=== PATIENT | male | born 1990 | race Caucasian/White ===

== ENCOUNTER 2018-09-18 19:19 | Emergency (ER) | payer OTHER ==
[2018-09-18] MEDS ORDERED: DEXAMETHASONE 10 MG/ML VIAL PO STA (20:42)
--- NOTE | 2018-09-18 20:48 | ED Physician Documentation ---
PD HPI PED ILLNESS - Stated complaint Stated Complaint: FLU SYMPTS - Chief complaint Chief Complaint: Resp - History obtained from History obtained from: Patient - History of Present Illness Timing - onset: Other (He is been sick for a week with cough, runny nose, sore throat. Now the sore throat is really been bothering him for the last 3 days with chills and body aches.) Review of Systems Constitutional: reports: Chills, Myalgias, Fatigue Nose: reports: Rhinorrhea / runny nose, Congestion Throat: reports: Sore throat Respiratory: reports: Cough GI: denies: Vomiting, Diarrhea PD PAST MEDICAL HISTORY - Past Medical History Past Medical History: No - Past Surgical History Past Surgical History: Yes - Present Medications Home Medications: Ambulatory Orders Medication Instructions Recorded Confirmed Ibuprofen [Motrin] 800 mg PO Q8H PRN #30 tablet 09/18/18 - Allergies Allergies/Adverse Reactions: Allergies Allergy/AdvReac Type Severity Reaction Status Date / Time No Known Drug Allergies Allergy Verified 09/18/18 19:35 - Social History Does the pt smoke?: Yes Smoking Status: Current every day smoker Does the pt drink ETOH?: No Does the pt have substance abuse?: No PD ED PE NORMAL - Vitals Vital signs reviewed: Yes - General General: Alert and oriented X 3, No acute distress - HEENT HEENT: EOMI, Ears normal, Pharynx benign - Neck Neck: Supple, no meningeal sign, No bony TTP - Cardiac Cardiac: RRR, No murmur - Respiratory Respiratory: No respiratory distress, Clear bilaterally - Abdomen Abdomen: Non tender - Derm Derm: No rash - Neuro Neuro: Alert and oriented X 3, Normal speech Results - Vitals Vitals: Vital Signs - 24 hr 09/18/18 19:35 Temperature 36.6 C Heart Rate 87 Respiratory 16 Rate Blood Pressure 132/75 H O2 Saturation 94 Oxygen O2 Source Room air - Labs Labs: Laboratory Tests 09/18/18 20:40 Group A Strep Rapid Negative PD MEDICAL DECISION MAKING - ED course ED course: 27-year-old gentleman with viral URI, unlikely to be strep but we will check. He is administered dexamethasone. He may have influenza but has been sick for the better part of a week so no utility in testing or treating. Departure - Departure Disposition: 01 Home, Self Care Clinical Impression: Upper respiratory tract infection Qualifiers: URI type: unspecified viral URI Qualified Code(s): J06.9 - Acute upper respiratory infection, unspecified Condition: Good Instructions: ED Viral Syndrome Prescriptions: Ibuprofen [Motrin] 800 mg PO Q8H PRN #30 tablet PRN Reason: PAIN &/OR FEVER Comments: Your blood pressure was elevated today on check into the emergency department. This does not mean that you have hypertension, it is a common phenomenon to come to the emergency department and have elevated blood pressure. I recommend that you see your primary care physician within the week to have it rechecked when you are feeling better. Forms: Activity restrictions
[2018-09-18 21:13] VITALS: BP 115/49
== END 2018-09-18 21:28 | disposition home or self-care (01) ==
LOC: ED 19:19
DX: J06.9 Acute upper respiratory infection, unspecified (principal); R03.0 Elevated blood-pressure reading, without diagnosis of hypertension; F17.200 Nicotine dependence, unspecified, uncomplicated
CPT/HCPCS: 87070; 87430; 99283

== ENCOUNTER 2019-02-15 19:53 | Emergency (ER) | payer OTHER ==
--- NOTE | 2019-02-15 20:40 | ED Physician Documentation ---
History of Present Illness - Stated complaint Stated Complaint: FLU SYMPTOMS - Chief complaint Chief Complaint: Heent - Additonal information Additional information: This is a 28-year-old male who denies past medical history who presents with 3 days of flulike symptoms. Patient states that his kids have been sick with a viral upper respiratory illness recently, he developed the same symptoms on Wednesday night. He has some sore throat, cough productive of some clear to yellow-green sputum, general malaise, and he started developing some nausea today. These are identical symptoms to the ones his children have. He denies specific chest pain or shortness of breath. No dysuria, no vomiting. He has had subjective fever intermittently. He has been taking DayQuil and NyQuil for his symptoms with some relief. Review of Systems Constitutional: reports: Fever Cardiac: denies: Chest pain / pressure Respiratory: reports: Cough GI: reports: Nausea Skin: denies: Rash PD PAST MEDICAL HISTORY - Past Medical History Cardiovascular: None Respiratory: None Neuro: None Endocrine/Autoimmune: None GI: None : None HEENT: None Psych: None Musculoskeletal: None Derm: None - Past Surgical History Past Surgical History: Yes - Present Medications Home Medications: Ambulatory Orders Medication Instructions Recorded Confirmed Ibuprofen [Motrin] 800 mg PO Q8H PRN #30 tablet 09/18/18 Benzonatate [Tessalon Perle] 100 - 200 mg PO TID PRN #30 capsule 02/15/19 Ondansetron Odt [Zofran] 4 mg TL Q6H PRN #10 tablet 02/15/19 RX: Acetaminophen 650 mg PO Q6HR #30 tablet 02/15/19 - Allergies Allergies/Adverse Reactions: Allergies Allergy/AdvReac Type Severity Reaction Status Date / Time No Known Drug Allergies Allergy Verified 09/18/18 19:35 - Social History Does the pt smoke?: Yes Smoking Status: Current every day smoker Does the pt drink ETOH?: No Does the pt have substance abuse?: No - Immunizations Immunizations are current?: Yes - POLST Patient has POLST: No PD ED PE NORMAL - Vitals Vital signs reviewed: Yes - General General: Alert and oriented X 3 - HEENT HEENT: Moist mucous membranes, Other (Posterior pharynx erythematous, there is no exudate. Mild nasal drainage which is clear.) - Neck Neck: Supple, no meningeal sign - Cardiac Cardiac: RRR, No murmur - Respiratory Respiratory: Clear bilaterally - Abdomen Abdomen: Normal bowel sounds, Soft, Non tender, Non distended - Derm Derm: Warm and dry - Extremities Extremities: No deformity - Neuro Neuro: Alert and oriented X 3 - Psych Psych: Normal mood, Normal affect Results - Vitals Vitals: Vital Signs - 24 hr 02/15/19 02/15/19 19:55 21:21 Temperature 36.8 C 37.7 C H Heart Rate 92 85 Respiratory 14 22 Rate Blood Pressure 136/68 H 125/66 O2 Saturation 96 96 Oxygen O2 Source Room air PD MEDICAL DECISION MAKING - ED course Complexity details: considered differential (Viral URI, viral pharyngitis, strep throat, gastroenteritis, pneumonia, bronchitis, sinusitis) ED course: On initial examination patient's vital signs are unremarkable. He is nontoxic- appearing. His lungs are clear to auscultation, his oxygen saturation is normal, and his duration of his symptoms make pneumonia unlikely. He has no facial pain or tenderness to suggest sinusitis. The presence of cough as well as his age make a strep throat exceedingly unlikely. He has had 3 days of symptoms which are identical to those of his children who are now getting over a viral syndrome, and I feel this is most likely diagnosis. His abdomen is benign. We will treat him symptomatically with Tessalon Perles, Zofran as needed for nausea, and Tylenol and Motrin. I also provided a note excusing him from work tonight. I discussed supportive care. I recommended follow-up with his primary care provider. I also reviewed return precautions including shortness of breath, symptoms that are worsening, or any other concerning symptoms. Patient was discharged home. Departure - Departure Disposition: 01 Home, Self Care Clinical Impression: Upper respiratory tract infection Condition: Good Instructions: ED Upper Resp Infec No Abx Tx Follow-Up: Your,PCP [Other] Prescriptions: RX: Acetaminophen 650 mg PO Q6HR #30 tablet Benzonatate [Tessalon Perle] 100 - 200 mg PO TID PRN #30 capsule PRN Reason: Cough Ondansetron Odt [Zofran] 4 mg TL Q6H PRN #10 tablet PRN Reason: Nausea / Vomiting Comments: You appear to have a upper respiratory infection, please get plenty of sleep, drink fluids, and use good hand hygiene to avoid passing this to others. Return to the emergency department if you are having worsening symptoms. Forms: Activity restrictions Discharge Date/Time: 02/15/19 21:28
[2019-02-15 21:21] VITALS: BP 125/66
== END 2019-02-15 21:28 | disposition home or self-care (01) ==
LOC: ED 19:53
DX: J06.9 Acute upper respiratory infection, unspecified (principal); R11.0 Nausea; F17.200 Nicotine dependence, unspecified, uncomplicated
CPT/HCPCS: 99283; 99284

== ENCOUNTER 2020-03-22 12:02 | Emergency (ER) | payer OTHER ==
--- NOTE | 2020-03-22 13:18 | ED Physician Documentation ---
History of Present Illness - Stated complaint Stated Complaint: THROAT PX - Chief complaint Chief Complaint: Heent - History obtained from History obtained from: Patient - Additonal information Additional information: Patient comes emergency department complaining of throat pain for the last couple of days. He states it hurts to swallow. He has had a feeling of fever and chills, And states that his temperatures at home have all been right at 100. He denies any rhinorrhea or cough. No shortness of breath. No nausea or vomiting. No abdominal pain. His daughter was sick with a "24-hour bug" last week. No other complaints at this time. Review of Systems Ten Systems: 10 systems reviewed and negative Constitutional: reports: Fever, Chills, Fatigue Eyes: reports: Reviewed and negative Ears: reports: Reviewed and negative Nose: reports: Reviewed and negative Throat: reports: Sore throat Cardiac: reports: Reviewed and negative Respiratory: reports: Reviewed and negative GI: reports: Reviewed and negative : reports: Reviewed and negative Skin: reports: Reviewed and negative Musculoskeletal: reports: Reviewed and negative Neurologic: reports: Reviewed and negative Psychiatric: reports: Reviewed and negative Endocrine: reports: Reviewed and negative Immunocompromised: reports: Reviewed and negative PD PAST MEDICAL HISTORY - Past Medical History Cardiovascular: None Respiratory: None Neuro: None Endocrine/Autoimmune: None GI: None : None HEENT: None Psych: None Musculoskeletal: None Derm: None - Past Surgical History Past Surgical History: Yes - Present Medications Home Medications: Ambulatory Orders Medication Instructions Recorded Confirmed Ibuprofen [Motrin] 800 mg PO Q8H PRN #30 tablet 09/18/18 Acetaminophen 650 mg PO Q6HR #30 tablet 02/15/19 Benzonatate [Tessalon Perle] 100 - 200 mg PO TID PRN #30 capsule 02/15/19 Ondansetron Odt [Zofran] 4 mg TL Q6H PRN #10 tablet 02/15/19 Amoxicillin 500 mg PO TID 7 Days #21 capsule 03/22/20 - Allergies Allergies/Adverse Reactions: Allergies Allergy/AdvReac Type Severity Reaction Status Date / Time No Known Drug Allergies Allergy Verified 09/18/18 19:35 - Social History Does the pt smoke?: Yes Smoking Status: Current every day smoker Does the pt drink ETOH?: No Does the pt have substance abuse?: No - Immunizations Immunizations are current?: Yes - POLST Patient has POLST: No PD ED PE NORMAL - Vitals Vital signs reviewed: Yes - General General: Alert and oriented X 3, No acute distress - HEENT HEENT: Atraumatic, PERRL, EOMI, Moist mucous membranes, Other (Patient has 3+ tonsils with exudates bilaterally.) - Neck Neck: Supple, no meningeal sign, No adenopathy - Respiratory Respiratory: No respiratory distress - Abdomen Abdomen: Soft, Non tender, Non distended, No organomegaly - Derm Derm: Normal color, Warm and dry, No rash - Extremities Extremities: No deformity - Neuro Neuro: Alert and oriented X 3 - Psych Psych: Normal mood, Normal affect Results - Vitals Vitals: Oxygen O2 Source Room air - Labs Labs: Microbiology 03/22/20 12:35 Group A Strep Throat Culture - Final Throat Beta Hemolytic Strep Group C Laboratory Tests 03/22/20 03/22/20 12:35 13:53 Infectious [place] Assay NEGATIVE Group A Strep Rapid Negative PD MEDICAL DECISION MAKING - ED course Complexity details: reviewed results, re-evaluated patient, considered differential, d/w patient ED course: Patient was treated symptomatically with GI cocktail and prednisone. His rapid strep test was negative. The patient clearly had exudative pharyngitis, and so I did also send a mono screen which is pending at this time. Malcolm he should be started on antibiotics, given his symptoms and findings. We have discussed that if the mono test is positive, he will be called at home. Otherwise, he should continue to take the amoxicillin as directed. Departure - Departure Disposition: 01 Home, Self Care Clinical Impression: Exudative pharyngitis Condition: Stable Instructions: ED Strep Pharyngitis Poss Prescriptions: Amoxicillin 500 mg PO TID 7 Days #21 capsule Comments: Your rapid strep test came back negative. However, because your throat exam is so convincing for strep, you have been started on antibiotics. On rare occasions, strep throat can be caused by 1 of the strains of strep that does not come up as a positive result on the throat culture so this is also a possibility. As we have discussed, occasionally a strep-like appearance and so re throat can be caused by mono, which is a viral infection. A test for this has been drawn today. You will be called if it comes back positive. For now however, please take the antibiotics as directed. Discharge Date/Time: 03/22/20 13:55
[2020-03-22] MEDS ORDERED: predniSONE 20 MG TABLET PO STA (13:26)
[2020-03-22 13:30] LABS: RAPID STREP SCREEN Negative (Negative)
[2020-03-22 13:52] VITALS: BP 141/85
[2020-03-22] MEDS ORDERED: GI COCKTAIL 120 ML BOTTLE PO SCH (14:00)
== END 2020-03-22 13:55 | disposition home or self-care (01) ==
LOC: ED 12:02
DX: J02.9 Acute pharyngitis, unspecified (principal); F17.200 Nicotine dependence, unspecified, uncomplicated
CPT/HCPCS: 36415; 86308; 87070; 87430; 99283; 99284; J7512

== ENCOUNTER 2021-04-27 08:03 | Emergency (ER) | payer OTHER ==
[2021-04-27 08:29] LABS: RAPID STREP SCREEN Negative (Negative)
--- NOTE | 2021-04-27 09:06 | ED Physician Documentation ---
PD HPI HEENT - Stated complaint Stated Complaint: THROAT PX - Chief complaint Chief Complaint: Heent - History obtained from History obtained from: Patient - Additional information Additional information: Patient comes emergency department complaining of sore throat for 2 days. 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 He does note that he has had strep throat as an adult. No fevers or chills. He has had mild cough and some congestion. No other known exposures. Patient is vaccinated for Covid. Review of Systems Ten Systems: 10 systems reviewed and negative Constitutional: reports: Reviewed and negative Eyes: reports: Reviewed and negative Ears: reports: Reviewed and negative Nose: reports: Congestion Throat: reports: Sore throat Cardiac: reports: Reviewed and negative Respiratory: reports: Reviewed and negative GI: reports: Reviewed and negative : reports: Reviewed and negative Skin: reports: Reviewed and negative Musculoskeletal: reports: Reviewed and negative Neurologic: reports: Reviewed and negative Psychiatric: reports: Reviewed and negative Endocrine: reports: Reviewed and negative Immunocompromised: reports: Reviewed and negative PD PAST MEDICAL HISTORY - Past Medical History Cardiovascular: None Respiratory: None Neuro: None Endocrine/Autoimmune: None GI: None : None HEENT: None Psych: None Musculoskeletal: None Derm: None - Past Surgical History Past Surgical History: Yes - Present Medications Home Medications: Ambulatory Orders Medication Instructions Recorded Confirmed No Known Home Medications 04/27/21 04/27/21 - Allergies Allergies/Adverse Reactions: Allergies Allergy/AdvReac Type Severity Reaction Status Date / Time No Known Drug Allergies Allergy Verified 04/27/21 08:11 - Social History Does the pt smoke?: Yes Smoking Status: Current every day smoker Does the pt drink ETOH?: No Does the pt have substance abuse?: No - Immunizations Immunizations are current?: Yes - POLST Patient has POLST: No PD ED PE NORMAL - Vitals Vital signs reviewed: Yes - General General: Alert and oriented X 3, No acute distress, Well developed/nourished - HEENT HEENT: Atraumatic, PERRL, EOMI, Moist mucous membranes, Pharynx benign - Neck Neck: Supple, no meningeal sign - Cardiac Cardiac: RRR, No murmur - Respiratory Respiratory: No respiratory distress, Clear bilaterally - Abdomen Abdomen: Soft, Non tender, Non distended - Derm Derm: Normal color, Warm and dry, No rash - Extremities Extremities: No deformity, No edema - Neuro Neuro: Alert and oriented X 3, Other (Grossly normal) - Psych Psych: Normal mood, Normal affect Results - Vitals Vitals: Vital Signs - 24 hr 04/27/21 04/27/21 08:12 09:18 Temperature 36.8 C 37 C Heart Rate 76 72 Respiratory 18 16 Rate Blood Pressure 150/89 H 141/90 H O2 Saturation 97 96 Oxygen O2 Source Room air - Labs Labs: Laboratory Tests 04/27/21 08:20 Group A Strep Rapid Negative PD MEDICAL DECISION MAKING - ED course Complexity details: reviewed results, re-evaluated patient, considered differential, d/w patient ED course: Patient was worked up with a strep test which was negative. He otherwise was very well-appearing and I did not feel that Further work-up was indicated in the emergency department. We have discussed symptomatic management at home and parameters for follow-up. Departure - Departure Disposition: 01 Home, Self Care Clinical Impression: Viral pharyngitis Condition: Stable Instructions: ED Pharyngitis Viral Comments: Your strep test is negative today. You most likely have a viral illness causing your symptoms. If you begin to run fevers and your tonsils become beefy red with pus-like patches stuck to them, please have a strep test repeated. Discharge Date/Time: 04/27/21 09:18
[2021-04-27 09:19] VITALS: BP 141/90
== END 2021-04-27 09:18 | disposition home or self-care (01) ==
LOC: ED 08:03
DX: J02.8 Acute pharyngitis due to other specified organisms (principal)
CPT/HCPCS: 87070; 87077; 87430; 99282; 99283

== ENCOUNTER 2021-04-28 07:17 | Emergency (ER) | payer OTHER ==
[2021-04-28 07:40] VITALS: BP 139/82
--- NOTE | 2021-04-28 08:18 | ED Physician Documentation ---
History of Present Illness - Stated complaint Stated Complaint: LOSS OF APPITITE/CHILLS - Chief complaint Chief Complaint: Heent - History obtained from History obtained from: Patient - Additonal information Additional information: Patient returns to the emergency department after being seen yesterday with chief complaint of sore throat and wondering if he had strep. He was tested at that time and found to be negative. Patient states that now, he has a little bit of chills and a low appetite. No vomiting or diarrhea. The throat pain has not gotten worse. No fevers. No other specific symptoms. Patient states he is otherwise healthy. Review of Systems Ten Systems: 10 systems reviewed and negative Constitutional: reports: Chills. denies: Fever, Fatigue Eyes: reports: Reviewed and negative Ears: reports: Reviewed and negative Nose: reports: Reviewed and negative Throat: reports: Reviewed and negative Cardiac: reports: Reviewed and negative Respiratory: reports: Reviewed and negative GI: reports: Reviewed and negative. denies: Abdominal Pain : reports: Reviewed and negative Skin: reports: Reviewed and negative Musculoskeletal: reports: Reviewed and negative Neurologic: reports: Reviewed and negative Psychiatric: reports: Reviewed and negative Endocrine: reports: Reviewed and negative Immunocompromised: reports: Reviewed and negative PD PAST MEDICAL HISTORY - Past Medical History Past Medical History: Yes Cardiovascular: None Respiratory: None Neuro: None Endocrine/Autoimmune: None GI: None : None HEENT: None Psych: None Musculoskeletal: None Derm: None - Past Surgical History Past Surgical History: Yes - Present Medications Home Medications: Ambulatory Orders Medication Instructions Recorded Confirmed No Known Home Medications 04/27/21 04/27/21 - Allergies Allergies/Adverse Reactions: Allergies Allergy/AdvReac Type Severity Reaction Status Date / Time No Known Drug Allergies Allergy Verified 04/28/21 07:41 - Social History Does the pt smoke?: Yes Smoking Status: Current every day smoker Does the pt drink ETOH?: No Does the pt have substance abuse?: No - Immunizations Immunizations are current?: Yes - POLST Patient has POLST: No PD ED PE NORMAL - Vitals Vital signs reviewed: Yes - General General: Alert and oriented X 3, No acute distress, Well developed/nourished - HEENT HEENT: Atraumatic, PERRL, EOMI, Moist mucous membranes - Neck Neck: Supple, no meningeal sign - Cardiac Cardiac: RRR, No murmur, Strong equal pulses - Respiratory Respiratory: No respiratory distress, Clear bilaterally - Abdomen Abdomen: Soft, Non tender, Non distended - Derm Derm: Normal color, Warm and dry, No rash - Extremities Extremities: No deformity, No edema - Neuro Neuro: Alert and oriented X 3 - Psych Psych: Normal mood, Normal affect Results - Vitals Vitals: Oxygen O2 Source Room air - Labs Labs: Laboratory Tests 04/28/21 07:50 Nasal Adenovirus (PCR) NOT DETECTED Nasal B. parapertussis DNA (PCR) NOT DETECTED Nasal Coronavir 229E PCR NOT DETECTED Nasal Coronavir HKU1 PCR NOT DETECTED Nasal Coronavir NL63 PCR NOT DETECTED Nasal Coronavir OC43 PCR NOT DETECTED Nasal Enterovir/Rhinovir PCR DETECTED A Nasal Influenza B PCR NOT DETECTED Nasal Influenza A PCR NOT DETECTED Nasal Parainfluen 1 PCR NOT DETECTED Nasal Parainfluen 2 PCR NOT DETECTED Nasal Parainfluen 3 PCR NOT DETECTED Nasal Parainfluen 4 PCR NOT DETECTED Nasal RSV (PCR) NOT DETECTED Nasal B.pertussis DNA PCR NOT DETECTED Nasal C.pneumoniae (PCR) NOT DETECTED Cory Human Metapneumo PCR NOT DETECTED Nasal M.pneumoniae (PCR) NOT DETECTED Nasal SARS-CoV-2 (PCR) NOT DETECTED PD MEDICAL DECISION MAKING - ED course Complexity details: considered differential, d/w patient ED course: The patient was still well-appearing, and I discussed with him that he most likely has many viruses that are going around. This is likely an evolution of the illness that he was already seen for yesterday. We have discussed symptomatic management at home as well to usual indications for return. Departure - Departure Disposition: 01 Home, Self Care Clinical Impression: Upper respiratory tract infection Qualifiers: URI type: unspecified viral URI Qualified Code(s): J06.9 - Acute upper respiratory infection, unspecified Condition: Stable Instructions: ED Viral Syndrome Forms: Activity restrictions Discharge Date/Time: 04/28/21 08:27
[2021-04-28 09:24] LABS: CORONAVIRUS 229E-RESP PCR NOT DETECTED; CORONAVIRUS HKU1-RESP PCR NOT DETECTED; CORONAVIRUS NL63-RESP PCR NOT DETECTED; CORONAVIRUS OC43-RESP PCR NOT DETECTED; HUMAN METAPNEUMOVIRUS NOT DETECTED; SARS-CoV-2 -RESP PCR PANEL NOT DETECTED
[2021-04-28 09:25] LABS: B. PARAPERTUSSIS- RESP PCR PAN NOT DETECTED; B. PERTUSSIS- RESP PCR PANEL NOT DETECTED; C. PNEUMONIAE- RESP PCR PANEL NOT DETECTED; INFLUENZA A- RESP PCR PANEL NOT DETECTED; INFLUENZA B - RESP PCR PANEL NOT DETECTED; M. PNEUMONIAE- RESP PCR PANEL NOT DETECTED; PARAINFLUENZA VIRUS 1 NOT DETECTED; PARAINFLUENZA VIRUS 2 NOT DETECTED; PARAINFLUENZA VIRUS 3 NOT DETECTED; PARAINFLUENZA VIRUS 4 NOT DETECTED; RHINOVIRUS/ENTEROVIRUS DETECTED; RSV- RESP PCR PANEL NOT DETECTED
== END 2021-04-28 08:27 | disposition home or self-care (01) ==
LOC: ED 07:17
DX: J06.9 Acute upper respiratory infection, unspecified (principal); F17.200 Nicotine dependence, unspecified, uncomplicated; Z20.822 Contact with and (suspected) exposure to COVID-19
CPT/HCPCS: 0202U; 99282; 99283